=== PATIENT | female | born 1945 | race Caucasian/White ===

== ENCOUNTER 2017-09-20 12:45 | Observation (INO) | payer MEDICARE, OTHER ==
[~2017-09-20] VITALS: Ht 165.1 cm; Wt 57.7 kg
[2017-09-20] MEDS ORDERED: METOPROLOL TARTRATE 1 MG/ML 5ML VIAL IV ONE (13:30)
[2017-09-20 13:50] LABS: BASOPHILS % (AUTO) 0.7 % (0.0-5.0); EOSINOPHILS % (AUTO) 1.3 % (0.0-8.0); HEMATOCRIT 41.3 % (36-48); LYMPHOCYTES % (AUTO) 14.9 % (21.0-51.0); MEAN CORPUSCULAR HEMOGLOBIN 32.2 pg (27.0-33.0); MEAN CORPUSCULAR HGB CONC 34.4 g/dL (32.0-36.0); MEAN CORPUSCULAR VOLUME 93.4 fL (79-99); MONOCYTES % (AUTO) 6.7 % (3.0-13.0); NEUTROPHILS % (AUTO) 76.4 % (40.0-77.0); NUCLEATED RED BLOOD CELLS 0.1 % (0.0-0.19); PLATELET COUNT (AUTO) 207 K/uL (130-400); RED BLOOD CELL COUNT(AUTO) 4.43 MIL/uL (4.00-5.50); RED CELL DISTRIBUTION WIDTH 13.3 % (11.0-15.5); WHITE BLOOD COUNT (AUTO) 6.7 K/uL (4.8-10.8)
[2017-09-20 14:03] LABS: CREATININE 0.8 mg/dL (0.5-1.5); POTASSIUM 3.9 mmol/L (3.5-5.1)
[2017-09-20 14:12] LABS: INR 0.97 (0.85-1.15); PROTHROMBIN TIME 10.2 SEC (9.6-11.6)
[2017-09-20 14:17] LABS: BILIRUBIN,TOTAL 0.5 mg/dL (0.2-1.0); TOTAL PROTEIN, SERUM 7.3 g/dL (6.0-8.3)
[2017-09-20 14:29] LABS: B-TYPE NATRIURETIC PEPTIDE 193 pg/mL (0-100)
[2017-09-20] MEDS ORDERED: ACETAMINOPHEN 325 MG TAB PO PRN (15:00)
[2017-09-20 15:45] VITALS: BP 129/97
[2017-09-20 19:26] VITALS: BP 120/70
[2017-09-20] MEDS: ENOXAPARIN SODIUM 60 MG/0.6 ML SQ SCH (20:30)
[2017-09-20] MEDS: METOPROLOL TARTRATE 25 MG TAB PO SCH (21:44)
[2017-09-20 23:10] VITALS: BP 101/69
[2017-09-21] MEDS ORDERED: TERI2.4P SQ (03:17)
[2017-09-21 03:29] VITALS: BP 95/58
[2017-09-21 03:58] LABS: HEMATOCRIT 37.8 % (36-48); MEAN CORPUSCULAR HEMOGLOBIN 31.7 pg (27.0-33.0); MEAN CORPUSCULAR HGB CONC 34.3 g/dL (32.0-36.0); MEAN CORPUSCULAR VOLUME 92.6 fL (79-99); PLATELET COUNT (AUTO) 181 K/uL (130-400); RED BLOOD CELL COUNT(AUTO) 4.09 MIL/uL (4.00-5.50); RED CELL DISTRIBUTION WIDTH 13.4 % (11.0-15.5); WHITE BLOOD COUNT (AUTO) 8.7 K/uL (4.8-10.8)
[2017-09-21 04:15] LABS: CREATININE 0.8 mg/dL (0.5-1.5); POTASSIUM 3.8 mmol/L (3.5-5.1)
[2017-09-21 07:53] VITALS: BP_SYST 93; BP_DIAS 61; BP_DIAS 67
[2017-09-21] MEDS: PANTOPRAZOLE SODIUM 40 MG TABLET.DR PO SCH (08:27)
[2017-09-21] MEDS ORDERED: ENOXAPARIN SODIUM 40 MG/0.4 ML SYRINGE SQ SCH (09:00)
[2017-09-21] MEDS: METOPROLOL TARTRATE 25 MG TAB PO SCH ×2 (09:46→21:35)
[2017-09-21] MEDS: ENOXAPARIN SODIUM 60 MG/0.6 ML SQ SCH ×2 (09:47→21:37)
[2017-09-21 11:03] VITALS: BP 122/72
[2017-09-21 16:30] VITALS: BP 132/77
[2017-09-21 19:20] VITALS: BP 101/61
[2017-09-21 23:32] VITALS: BP 104/72
[2017-09-22 04:33] VITALS: BP 104/54
[2017-09-22] MEDS: PANTOPRAZOLE SODIUM 40 MG TABLET.DR PO SCH (07:18)
[2017-09-22 07:43] VITALS: BP 110/67
[2017-09-22] MEDS: ENOXAPARIN SODIUM 60 MG/0.6 ML SQ SCH (09:00)
[2017-09-22] MEDS: METOPROLOL TARTRATE 25 MG TAB PO SCH (09:43)
[2017-09-22] MEDS ORDERED: METO25TA6 PO (11:18)
== END 2017-09-22 11:35 | disposition home or self-care (01) ==
LOC: EDH 12:45 → EDHIP 14:55 → 2AH 15:26
PROVIDERS: ADMIT Family Medicine; ATTEND Family Medicine
DX: I48.0 Paroxysmal atrial fibrillation (principal); S20.219A Contusion of unspecified front wall of thorax, initial encounter; M81.0 Age-related osteoporosis without current pathological fracture; I34.1 Nonrheumatic mitral (valve) prolapse; C50.919 Malignant neoplasm of unspecified site of unspecified female breast; I49.3 Ventricular premature depolarization; V89.2XXA Person injured in unspecified motor-vehicle accident, traffic, initial encounter; Y93.89 Activity, other specified; Y92.410 Unspecified street and highway as the place of occurrence of the external cause; Y99.8 Other external cause status; Z85.3 Personal history of malignant neoplasm of breast; Z90.13 Acquired absence of bilateral breasts and nipples; Z79.899 Other long term (current) drug therapy; Z72.0 Tobacco use; Z82.49 Family history of ischemic heart disease and other diseases of the circulatory system
CPT/HCPCS: 36415 ×2; 71045; 80048; 80053; 80061; 82550; 82553; 83735; 83874; 83880; 84443; 84484; 85025; 85027; 85610; 85730; 93005 ×2; 93306; 96372 ×2; 99285; G0378 ×45; J1650 ×3; J3490

== ENCOUNTER → 2018-09-19 | Outpatient (CLI) | payer MEDICARE ==
[~2018-09-19] MED LIST: METO25TA6 PO; TERI2.4P SQ
== END | disposition home or self-care (01) ==
LOC: SHCH 13:50
PROVIDERS: ATTEND Internal Medicine Cardiovascular Disease
DX: I08.1 Rheumatic disorders of both mitral and tricuspid valves (principal); I10 Essential (primary) hypertension
CPT/HCPCS: 93306

== ENCOUNTER 2019-09-28 13:16 | Inpatient (IN) | payer MEDICARE ==
[~2019-09-28] VITALS: Ht 165.1 cm; Wt 52.8 kg
[~2019-09-28 13:16] MED LIST changes: +ACYC400T PO; +AMOX250C4 PO; +BONE SUPPORT PO; +LETR2.5T7 PO; +MAG PO; +MAGN100T PO; +MELATONIN SL; +RIVA20TA PO; -TERI2.4P SQ; +VIT D PO; +VIT D3 PO; +VIT PO; +[UNRECOGNIZED DRUG - OTHER] PO; +[UNRECOGNIZED DRUG - OTHER] PO; +[UNRECOGNIZED DRUG - OTHER] PO; +[UNRECOGNIZED DRUG - OTHER] PO; +[UNRECOGNIZED DRUG - OTHER] SL
[2019-09-28 13:51] LABS: BASOPHILS % (AUTO) 0.4 % (0.0-5.0); EOSINOPHILS % (AUTO) 0.5 % (0.0-8.0); HEMATOCRIT 40.5 % (36-48); LYMPHOCYTES % (AUTO) 9.7 % (21.0-51.0); MEAN CORPUSCULAR HGB CONC 33.6 g/dL (32.0-36.0); MEAN CORPUSCULAR VOLUME 95.3 fL (79-99); PLATELET COUNT (AUTO) 183 K/uL (130-400); RED BLOOD CELL COUNT(AUTO) 4.25 MIL/uL (4.00-5.50); RED CELL DISTRIBUTION WIDTH 13.2 % (11.0-15.5); WHITE BLOOD COUNT (AUTO) 9.6 K/uL (4.8-10.8)
[2019-09-28 14:01] LABS: BILIRUBIN,TOTAL 0.7 mg/dL (0.2-1.0); CREATININE 0.7 mg/dL (0.5-1.5); POTASSIUM 4.3 mmol/L (3.5-5.1); TOTAL PROTEIN, SERUM 6.8 g/dL (6.0-8.3)
[2019-09-28 14:02] LABS: INR 1.02 (0.85-1.15); PARTIAL THROMBOPLASTIN TIME 26.7 SEC (26.3-35.5)
[2019-09-28] MEDS ORDERED: IOHEXOL-350 75 ML VIAL IV ONE (14:25)
[2019-09-28] MEDS ORDERED: ASPIRIN 325 MG TABLET ONE (16:49)
[2019-09-28] MEDS ORDERED: MORPHINE SULFATE 2 MG/ML 1ML SYG IV PRN (18:45)
[2019-09-28] MEDS ORDERED: METOPROLOL TARTRATE 25 MG TAB PO SCH (18:45)
[2019-09-28] MEDS ORDERED: ACETAMINOPHEN 325 MG TAB PO PRN ×2 (18:45)
[2019-09-28] MEDS ORDERED: ONDANSETRON HCL 4 MG/2 ML VIAL IV PRN (18:45)
[2019-09-28] MEDS ORDERED: GADODIAMIDE 10 MMOL/20 ML VIAL IV ONE (19:28)
[2019-09-28] MEDS: ATORVASTATIN CALCIUM 10 MG TABLET PO SCH (21:00)
[2019-09-28] MEDS: FAMOTIDINE/PF 20 MG/2 ML VIAL IV SCH (21:00)
[2019-09-28] MEDS: APIXABAN 5 MG TABLET PO SCH (21:00)
[2019-09-28] MEDS ORDERED: METOPROLOL TARTRATE 25 MG TAB ONE (21:11)
[2019-09-28 22:15] VITALS: BP 130/91
--- NOTE | 2019-09-28 22:15 | NUR ---
ARRIVED ON FLOOR PATIENT AWAKE, ALERT, ORIENTED X3. NO PAIN OR DISTRESS REPORTED. PT ON ROOM AIR. VS STABLE. PT REPORTS TO REGAINING VISION OUT OF RIGHT EYE. PREVIOUSLY REPORTED IN ED THAT SHE COULD NOT PERIPHERALLY SEE FROM RIGHT EYE. PT HAS BELONGINGS AT BEDSIDE. STATES SHE DOES NOT WANT TO CHANGE OUT OF HER CLOTHES INTO A HOSPITAL GOWN AT THIS TIME D/T BEING "COLD". HEATING PACKS WRAPPED IN A PILLOW CASE GIVEN TO WARM PT'S HANDS. ADMISSION PACKET PAPERS SIGNED, PLACED IN CHART. ORIENTED CRATE BUILDER LIGHT- LEFT WITHIN REACH. BED LOCKED IN LOWEST POSITION. DOOR LEFT OPEN AJAR.
[2019-09-29] VITALS: BP 130/71
--- NOTE | 2019-09-29 04:15 | NUR ---
REFUSED VITALS PT REFUSED VITALS AT THIS TIME. STATES SHE JUST HAD BLOOD DRAWN AND DOES NOT WANT VITALS ASSESSED, TO COME BACK LATER. WILL ATTEMPT AGAIN.
[2019-09-29 05:36] LABS: BASOPHILS % (AUTO) 0.2 % (0.0-5.0); HEMATOCRIT 37.9 % (36-48); LYMPHOCYTES % (AUTO) 13.7 % (21.0-51.0); MEAN CORPUSCULAR HEMOGLOBIN 32.8 pg (27.0-33.0); MEAN CORPUSCULAR HGB CONC 34.6 g/dL (32.0-36.0); MONOCYTES % (AUTO) 8.4 % (3.0-13.0); NEUTROPHILS % (AUTO) 76.4 % (40.0-77.0); PLATELET COUNT (AUTO) 165 K/uL (130-400); RED BLOOD CELL COUNT(AUTO) 3.99 MIL/uL (4.00-5.50); RED CELL DISTRIBUTION WIDTH 13.1 % (11.0-15.5)
[2019-09-29 05:53] LABS: ALBUMIN 3.4 g/dL (3.5-5.0); BILIRUBIN,TOTAL 0.7 mg/dL (0.2-1.0); CREATININE 0.7 mg/dL (0.5-1.5); POTASSIUM 3.7 mmol/L (3.5-5.1)
[2019-09-29 08:00] VITALS: BP 122/72
[2019-09-29] MEDS: FAMOTIDINE/PF 20 MG/2 ML VIAL IV SCH ×2 (09:30→21:00)
[2019-09-29] MEDS: APIXABAN 5 MG TABLET PO SCH ×2 (09:33→22:06)
[2019-09-29] MEDS: ACYCLOVIR 200 MG CAPSULE PO SCH ×2 (11:33→22:06)
[2019-09-29] MEDS: METOPROLOL TARTRATE 25 MG TAB PO SCH (11:33)
[2019-09-29 11:53] VITALS: BP 122/83
[2019-09-29] MEDS: MAGNESIUM GLYCINATE 100 MG PO SCH ×2 (14:00→21:00)
[2019-09-29 16:00] VITALS: BP 124/78
[2019-09-29] MEDS: AMOXICILLIN 250 MG CAPSULE PO SCH (16:38)
--- NOTE | 2019-09-29 17:40 | NUR ---
cm note met with patient and states resides at home alone, has a friend melissa that can assist as needed. pt is independent with adls and self care. no dme. no home services. dc plan is back to home at ma. states no dc needs. Addendum: 09/29/19 at 1742 by NAS BROOKE CM Amended: Links added.
[2019-09-29 19:58] VITALS: BP 118/73
[2019-09-29] MEDS ORDERED: ACYCLOVIR 400 MG PO SCH (21:00)
[2019-09-29] MEDS: ATORVASTATIN CALCIUM 10 MG TABLET PO SCH (21:00)
[2019-09-30 00:40] VITALS: BP 115/73
[2019-09-30 04:16] VITALS: BP 105/66
[2019-09-30 08:00] VITALS: BP 110/67
[2019-09-30] MEDS ORDERED: METOPROLOL TARTRATE 25 MG TAB PO SCH (09:00)
[2019-09-30] MEDS: LETROZOLE 2.5 MG PO SCH (09:00)
[2019-09-30] MEDS: VIT D3 4000 UNIT PO SCH (09:00)
[2019-09-30] MEDS: [UNRECOGNIZED DRUG - OTHER] SL SCH (09:00)
[2019-09-30] MEDS: MAGNESIUM GLYCINATE 100 MG PO SCH ×3 (09:00→20:17)
[2019-09-30] MEDS: APIXABAN 5 MG TABLET PO SCH ×2 (09:44→21:25)
[2019-09-30] MEDS: AMOXICILLIN 250 MG CAPSULE PO SCH (09:45)
[2019-09-30] MEDS: METOPROLOL TARTRATE 25 MG TAB PO SCH (09:46)
[2019-09-30] MEDS: FAMOTIDINE/PF 20 MG/2 ML VIAL IV SCH ×2 (09:47→21:00)
[2019-09-30] MEDS: ACYCLOVIR 200 MG CAPSULE PO SCH ×2 (09:48→21:25)
[2019-09-30 16:00] VITALS: BP 113/67
[2019-09-30 19:30] VITALS: BP 119/67
--- NOTE | 2019-09-30 19:40 | NUR ---
STILL REPORTS DECREASED RIGHT PERIPHERAL VISION. ALSO REPORTS VISUAL DISTURBANCES UNABLE TO DESCRIBE, BUT APPEAR FROM LEFT TO RIGHT ON BOTH EYES. PENDING DR SIMÓN GA TOMORROW. Addendum: 09/30/19 at 1294 by LORA ZAPIEN RN RN Amended: Links added.
[2019-09-30] MEDS: ATORVASTATIN CALCIUM 10 MG TABLET PO SCH (21:00)
[2019-09-30 23:34] VITALS: BP 127/74
[2019-10-01 03:48] VITALS: BP 109/69
[2019-10-01 08:00] VITALS: BP 118/60
[2019-10-01] MEDS: AMOXICILLIN 250 MG CAPSULE PO SCH (08:45)
[2019-10-01] MEDS: FAMOTIDINE/PF 20 MG/2 ML VIAL IV SCH (08:45)
[2019-10-01] MEDS: APIXABAN 5 MG TABLET PO SCH (08:45)
[2019-10-01] MEDS: ACYCLOVIR 200 MG CAPSULE PO SCH (08:46)
[2019-10-01] MEDS: METOPROLOL TARTRATE 25 MG TAB PO SCH (08:46)
[2019-10-01] MEDS: LETROZOLE 2.5 MG PO SCH (08:48)
[2019-10-01] MEDS: MAGNESIUM GLYCINATE 100 MG PO SCH (08:48)
[2019-10-01] MEDS: VIT D3 4000 UNIT PO SCH (08:48)
[2019-10-01] MEDS: [UNRECOGNIZED DRUG - OTHER] SL SCH (08:48)
[2019-10-01] MEDS ORDERED: ASPIRIN 81 MG EC TAB PO SCH (09:00)
--- NOTE | 2019-10-01 10:00 | NUR ---
DYSPHAGIA EVAL COMPLETED. S/S OF ASPIRATION. RECOMMEND REGULAR SOLIDS, THIN LIQUIDS, AND PILLS WHOLE WITH LIQUIDS. CHEMICAL LABORATORY TECHNICIAN COORDINATED CARE WITH NURSE MICKEY. Addendum: 10/01/[address] MALINI VAUGHN Amended: Links added.
[2019-10-01 12:00] VITALS: BP 122/74
== END 2019-10-01 16:14 | disposition home or self-care (01) | DRG 69 ==
LOC: EDH 13:16 → EDHIP 18:44 → 3DH 21:08
PROVIDERS: ADMIT Internal Medicine; ATTEND Internal Medicine
DX: G45.9 Transient cerebral ischemic attack, unspecified (principal); I48.20 Chronic atrial fibrillation, unspecified; H53.47 Heteronymous bilateral field defects; N64.9 Disorder of breast, unspecified; H54.61 Unqualified visual loss, right eye, normal vision left eye; M81.0 Age-related osteoporosis without current pathological fracture; Z88.1 Allergy status to other antibiotic agents; Z79.01 Long term (current) use of anticoagulants; Z82.3 Family history of stroke; Z85.3 Personal history of malignant neoplasm of breast; Z90.13 Acquired absence of bilateral breasts and nipples; Z81.8 Family history of other mental and behavioral disorders; Z80.8 Family history of malignant neoplasm of other organs or systems; Z82.49 Family history of ischemic heart disease and other diseases of the circulatory system; Z60.2 Problems related to living alone; Z90.49 Acquired absence of other specified parts of digestive tract
CPT/HCPCS: 36415; 70450; 70496; 70498; 70543; 70553; 80053; 80400; 82607; 82670; 82746; 82948; 84146; 84439; 84443; 84481; 85025; 85610; 85651; 85730; 92610; 93005; 93306; 99291; A9579; G0378; J3490; Q9967